=== PATIENT | male | born 1965 | race Caucasian/White ===

== ENCOUNTER → 2017-09-17 10:48 | Outpatient (CLI) | payer MEDICAID, SELFPAY ==
[2017-09-17 12:31] LABS: Absolute Lymphocyte Count 1.97 X10^3/ul (0.83-4.51); Basophil# 0.02 X10^3/uL; Basophil% 0.3 % (0-1); Eosinophil# 0.08 X10^3/uL; Eosinophils% 1.2 % (0-5); Hematocrit 43.5 % (40-54); Hemoglobin 15.6 g/dl (13.0-16.5); Lymphocyte # 1.97 X10^3/ul (4.0); Lymphocyte % 28.8 % (19-41); Mean Corp Hgb Conc 35.9 g/gl (32-36); Mean Corpuscular Hgb 28.8 pg (27.0-32.0); Mean Corpuscular Volume 80.3 fL (80-94); Mean Platelet Vol. 10.4 fl (6.2-12.0); Monocyte# 0.74 X10^3/uL; Monocyte% 10.8 % (0-10); Neutrophil # 4.03 X10^3/uL (2.7-7.7); Neutrophil % 58.8 % (47-70); Platelet Count 252 K/mm3 (150-450); RBC Distribution Width CV 13.6 % (11.6-14.6); RBC Distribution Width SD 39.6 fl (35.1-43.9); Red Blood Count 5.42 M/mm3 (4.6-6.2); White Blood Count 6.9 K/mm3 (4.4-11.0)
[2017-09-17 12:36] LABS: POSITIVE COUNT NO; POSITIVE DIFFERENTIAL NO; POSITIVE MORPHOLOGY NO
[2017-09-17 12:56] LABS: Anion Gap 7 (5-15); BUN 12 mg/dL (7-18); BUN/Creat Ratio 10.7 RATIO (10-20); Calcium,Total 8.9 mg/dL (8.5-10.1); Chloride 103 mmol/L (98-107); Creatinine, Serum 1.12 mg/dL (0.70-1.30); EST Glomerular Filtration Rate 74 mL/min (>60); Est Glom Filt Rate - Afr Amer 89 mL/min (>60); Glucose 100 mg/dL (74-106); Potassium 3.4 mmol/L (3.5-5.1); Sodium Level 141 mmol/L (136-145); T4 Free Direct 1.07 ng/dL (0.76-1.46); Thyroid Stim Hormone (TSH) 1.21 uIU/mL (0.358-3.74)
[2017-09-17 13:16] LABS: Hemoglobin A1c 5.2 % (4.2-6.3)
== END ==
PROVIDERS: Family Provider Family Medicine; PCP Family Medicine; Visit Provider Family Medicine
DX: I10 Essential (primary) hypertension (principal); R73.01 Impaired fasting glucose; E78.5 Hyperlipidemia, unspecified; Z80.42 Family history of malignant neoplasm of prostate
CPT/HCPCS: 36415; 80048; 83036; 84153; 84439; 84443; 85025; G0103

== ENCOUNTER → 2018-05-19 14:44 | Outpatient (CLI) | payer MEDICAID, SELFPAY ==
--- NOTE | 2018-05-19 14:46 | RAD_ITS ---
STUDY: X-RAY - RIGHT KNEE REASON FOR EXAM: Male, 52 years old. Left knee pain and swelling after injury years ago. TECHNIQUE: 4 view(s) of the knee. COMPARISON: None. FINDINGS: There is generalized osteopenia. Normal visualized distal femur. Normal visualized proximal tibia and fibula. Normal proximal tibiofibular articulation. There is mild arthrosis of the medial, lateral and patellofemoral compartments. There is chondrocalcinosis. RAD/Knee 4 or More Views IMPRESSION: Osteopenia with tricompartmental arthrosis. Chondrocalcinosis. Electronically Signed: Manuelito Marcial MD at 17:20 EST , Service support ,
== END ==
PROVIDERS: Family Provider Family Medicine; PCP Family Medicine; Referring Provider Orthopaedic Surgery; Visit Provider Orthopaedic Surgery
DX: M25.561 Pain in right knee (principal)
CPT/HCPCS: 73564

== ENCOUNTER → 2020-06-18 18:03 | Outpatient (CLI) | payer OTHER, SELFPAY ==
[2020-06-18 18:04] LABS: Pathologist Comment May follow
[2020-06-18 18:54] LABS: AUTO B FLUID DILUENT BKGD CT WBC <0.1 RBC <0.01 (W<.1,R<.01)
[2020-06-18 18:55] LABS: CRYSTALS, BODY FLUID See PATH REV; Source- Body Fluid SYNOVIAL
[2020-06-18 18:56] LABS: Appearance /Synovial Fluid Sl hazy (CLEAR); Color / Synovial Fluid Yellow (Pale Yellow); Viscosity / Synovial Fluid Liquid (HIGH)
[2020-06-18 19:33] LABS: RBC /Synovial Fluid 150 /mm3 (0)
[2020-06-18 19:35] LABS: Body Fluid QC Type(s) BF1Q,BF2Q; Synovial Fld Mononuclear WBC # 0.219 10^3/ul; Synovial Fld Mononuclear WBC % 95.7 %; Synovial Fld Polynuclear WBC % 4.3 %
[2020-06-18 20:18] LABS: Lymph 96 %; Monocyte /Synovial Fluid 4 %
[2020-06-19 12:08] LABS: Pathologist Review Reviewed
[2020-06-20 13:37] LABS: GLUCOSE, SYNOVIAL FLUID 101 mg/dL (.)
== END ==
PROVIDERS: PCP Family Medicine; Visit Provider Orthopaedic Surgery
DX: M13.161 Monoarthritis, not elsewhere classified, right knee (principal); Z87.39 Personal history of other diseases of the musculoskeletal system and connective tissue
CPT/HCPCS: 82945; 84157; 87070; 87075; 87205; 89050; 89051; 89060